=== PATIENT | male | born 1950 | race Caucasian/White ===

== ENCOUNTER 2016-08-28 20:54 | Observation (INO) ==
--- NOTE | 2016-08-28 21:25 | Emergency Department Note ---
Disposition Clinical Impression: Chest pain Qualifiers: Chest pain type: unspecified Qualified Code(s): R07.9 - Chest pain, unspecified Disposition: Admitted As Inpatient Time of Disposition: 21:35 Chest Pain HPI - General Chief Complaint: ED Chest Pain Stated Complaint: CP Time Seen by Provider: 08/28/16 21:09 Source: patient Limitations: no limitations Vital Signs Reviewed: Yes Nursing Notes Reviewed: Yes - History of Present Illness HPI Narrative: 65-year-old male with a known history of coronary disease and tobacco abuse presents to the emergency department via the [place] for evaluation of chest pain. Patient states that his pain has been going on for weeks and associated with exertion. Patient states when he is working outside his chest pain will develop usually develops in the left axilla. Patient states this feels similar to his previous [place]. Last heart catheterization was in the late . Patient states he had a stent placed at that time. Patient states he becomes diaphoretic and short of breath with this chest pain. Patient states the chest pain then will spread across his left anterior chest. Patient was given 3 nitroglycerin and 325 aspirin prior to arrival. Patient states that his chest pain resolved after medications. Pt complaint: chest pain Onset (ago): week(s) Duration: intermittent Onset: during exertion Pain Location: left chest Severity scale (1-10): 2 Quality: tightness, aching Pain Radiation: back Improves with: nitroglycerin Worsens with: exertion Associated symptoms: Reports: diaphoresis, dyspnea Treatments prior to arrival chest pain: aspirin, nitroglycerin - Related Data Home Medications Medication Instructions Recorded Confirmed Metoprolol [Lopressor] 25 mg PO BID 08/28/16 08/28/16 Naproxen [Naprosyn] 500 mg PO BID 08/28/16 08/28/16 Omeprazole [PriLOSEC] 40 mg PO DAILY 08/28/16 08/28/16 Ranitidine HCl [Acid Phlebotomy Services Technician] 150 mg PO DAILY 08/28/16 08/28/16 Allergies Allergy/AdvReac Type Severity Reaction Status Date / Time simvastatin AdvReac unknown Verified 08/28/16 21:40 All systems ED: reviewed and negative except as stated. Constitutional: Denies: fever, chills Cardiovascular: Reports: chest pain, dyspnea on exertion. Denies: palpitations Respiratory: Reports: dyspnea. Denies: cough Gastrointestinal: Denies: abdominal pain, nausea, vomiting Musculoskeletal: Reports: back pain Neurological: Reports: headache (After nitroglycerin) Chest Pain PMH - Past Medical History Medical history: Reports: hypertension Psychiatric history: Reports: no psych history - Social History Smoking Status: Current every day smoker Alcohol use: Reports: occasionally Drug use: Reports: none Physical Exam - General Limitations: no limitations General appearance: alert, in no apparent distress - Head Head exam: atraumatic, normocephalic, normal inspection - Chest Chest inspection: Present: normal inspection, symmetric chest wall rise - Respiratory Respiratory exam: Present: normal lung sounds bilaterally - Cardiovascular Cardiovascular exam: Present: regular rate, normal rhythm, normal heart sounds - Abdominal Exam Abdominal exam: Present: soft, Non-Tender. Absent: tenderness, distention, guarding, rebound, rigidity - Neurological Exam Neurological exam: Present: alert - Skin Skin exam: Present: warm, dry, intact, normal color Course - Reevaluation(s) Reevaluation #1: Discussed case with Dr. Palma. Patient accepted for further evaluation and treatment. Time: 21:42 Vital Signs Temperature 0 F L 08/28/16 20:58 Pulse Rate 96 08/28/16 20:58 Respiratory Rate 16 08/28/16 20:58 Blood Pressure 141/78 08/28/16 20:58 O2 Sat by Pulse Oximetry 95 08/28/16 20:58 Temperature 97.6 F 08/28/16 22:35 Pulse Rate 88 08/28/16 22:35 Respiratory Rate 16 08/28/16 22:35 Blood Pressure 144/87 08/28/16 22:35 O2 Sat by Pulse Oximetry 97 08/28/16 22:35 Oxygen Delivery Oxygen Delivery Room Air Heart Score - Score History: Moderately Suspicious EKG: Normal Age: Greater than 65 Risk Factors: Equal/Greater than 3 risk factor or history of atherosclerotic disease Troponin: Less than normal limit HEART Score Total: 5 Attestation Statement - Attestation Attestation: I, Nav Jiménez MD, personally performed a history and physical exam of the patient and discussed their management with the resident. I reviewed the resident's note and agree with the documented findings, medical decision making , and plan of care. 65-year-old male referred here from the [facility] urgent care to be admitted for chest pain. Patient states he has a history of an [place] in the distant past and has had a couple cardiac catheters in the distant past. He denies any stents. For some time he has been having chest pain that seems to be related to exertion. The pain starts in the left axilla and then radiates to the mid chest. The pain is relieved with rest and was also relieved with nitroglycerin and aspirin. At present he denies any chest pain. On examination patient is a well-developed well-nourished well-appearing elderly male in no acute distress. He is alert and oriented 3. There is no cyanosis or diaphoresis. It is nontender to palpation. Breath sounds are clear and equal bilaterally. Heart regular rate and rhythm. Abdomen soft with normal bowel sounds. No acute changes on EKG. The hospitalist, Dr. Palma, was consulted and accepted admission of the patient.
[2016-08-28] MEDS ORDERED: *HR* Morphine 2 MG/ML SYRINGE ONE (22:57)
[2016-08-28] MEDS: *HR* Morphine 2 MG/ML SYRINGE IVP PRN (23:00)
[2016-08-28] MEDS ORDERED: Heparin 25,000 UNIT/500 ML D5W 25,000 UNIT/500 ML MLS IVC SCH (23:45)
[2016-08-28] MEDS ORDERED: Nitroglycerin 0.4 MG TAB.SUBL SL PRN (23:46)
[2016-08-28] MEDS ORDERED: Pantoprazole 40 MG VIAL IVP ONE (23:46)
[2016-08-28] MEDS ORDERED: *HR* Heparin 5,000 UNIT/ML VIAL IVP ONE (23:46)
[2016-08-28] MEDS ORDERED: *HR* Heparin 5,000 UNIT/ML VIAL IVP PRN ×2 (23:46)
[2016-08-29] MEDS ORDERED: *HR* LORazepam 2 MG/ML VIAL IVP PRN ×2 (00:03→03:14)
--- NOTE | 2016-08-29 00:13 | Internal Med History&Physical ---
<OscarMercedes Aprylcindy Cuellar - Last Filed: 08/29/16 05:02> Date of Encounter: 08/28/16 Time of Encounter: 23:00 Assessment and Plan (1) Chest pain, rule out acute myocardial infarction Current visit: Yes Status: Acute Troponin, 0.00, will trend EKG with evidence of old septal/anterior infarct, no acute ST changes CXR [facility] atherosclerotic calcification of thoracic aorta -Degenerative changes in thoracic spine -No pulm edema, focal consolidation, pleural effusion, PTX Consider PE with this atypical chest pain pattern CTA vs. V/Q scan dependent upon renal function in am Doppler Venous B/L lower extremities, pending ECHO, pending Consult cardiology (2) GERD (gastroesophageal reflux disease) Current visit: Yes Status: Acute Patient with 15 year history of epigastric pain Given alcohol abuse, smoking status, and NSAID use he is at high risk for ulcer Will start Protonix 40 BID Will evaluate pancreas as source of pain Amylase and lipase, pending May consider GI consult should reflux/epigastric pain not improve Qualifiers: Esophagitis presence: esophagitis presence not specified Qualified Code(s) : K21.9 - Gastro-esophageal reflux disease without esophagitis (3) DONNY (acute kidney injury) Current visit: Yes Status: Acute Cr 1.43 on labs from [facility] Repeat CMP in am (4) Hyperlipemia Current visit: Yes Status: Acute Lipid panel pending Qualifiers: Hyperlipidemia type: unspecified Qualified Code(s): E78.5 - Hyperlipidemia , unspecified (5) Hypertension Current visit: Yes Status: Acute Patient with single BP reading of 139/101 in ED BP 183/106 in notes from [facility] on 08/28/16 Patient has been non-compliant with metoprolol Continue to monitor Qualifiers: Hypertension type: essential hypertension Qualified Code(s): I10 - Essential (primary) hypertension (6) Dysuria Current visit: Yes Status: Acute Associated with foul odor and urinary hesitancy Must consider prostate hyperplasia UA with culture Retroperitoneal US to evaluate for hydronephrosis (7) Anxiety Current visit: Yes Status: Acute Patient very anxious at examination Ativan prn for anxiety (8) Tobacco use disorder Current visit: Yes Status: Acute Nicoderm 21mg available if requested (9) Alcohol abuse Current visit: Yes Status: Acute CIWA protocol Thiamine 100mg daily (10) DVT prophylaxis Current visit: Yes Status: Acute Internal Medicine - H&P: HPI Chief complaint: chest pain Admitted From: Hospital to Hospital Transfer Plans for Post Hospital Care: Home History of present illness: Mr. Ramos is a 65 year old male who presents to the hospital as a transfer from the [facility]. Patient is accompanied by his 2 sons and their wives. Patient states that chest pain onset was March 2016. Pain is described as intermittently sharp and dull. Pain begins under the left arm, and radiates like a band around the chest and back. Patient takes Naproxen or Tylenol for this problem. Patient states that attacks of chest pain occur randomly and are not associated with activity. 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 Admits associated dyspnea, diaphoresis, and shaking. He states that he has had 2 prior caths, one at [facility] and another at [place]. He cannot recount the intervention performed or results. Patient states that he "failed" a stress test in 2005, but does not know what was done following this event. Patient was seen on 08/26/2016 at the [facility] and was transferred to the [place] emergency department. He was complaining of a heavy, tight chest pain that did not radiate into the left arm or jaw. Pain at that time was associated with diaphoresis. Patient received ASA and nitroglycerin, which relieved chest pain. Patient states that he received notice that he could not park his truck, which contained propane in the [facility] parking lot. He states that he had to leave the hospital to pick and shovel man his truck. He signed out AMA. Patient returned to the [facility] today 08/28/2016 with complaint of left sided chest pain. Patient was treated with morphine, ASA, and 3 SL nitroglycerin. He was subsequently transferred to [place] for chest pain and to rule out ACS. Patient does not regularly take currently take the medications prescribed to him. He stopped the metoprolol because he made him feel funny. He only takes Ranitidine intermittently. Past Med Surg Social Fam HX - Past Medical History Medical history: COPD, GERD, hyperlipidemia, hypertension, peripheral artery disease (intermittent claudication), other (Lumbar Radiculopathy, Cervical Radiculopathy) Psychiatric history: no psych history - Past Surgical History Surgical History: knee replacement, orthopedic, other (Right knee arthroscopy) - Social History Smoking Status: Current every day smoker (2ppd x 50 years) Packs per day: 2 Smokeless Tobacco Status: No Alcohol use: heavy (8-12 beers per day, more on other days), recent Drug use: none Current living situation: Home - Independent Activity Level: Independent ambulation - Family History Father Race: Hx Family Cardiac Disorders: Yes Hx Family Cancer: Yes (COLON CANCER) Mother Living Status: Still Living Hx Family Cardiac Disorders: Yes (STENTS, PACEMAKER) Brother Living Status: Still Living Hx Family Cancer: Yes (Throat cancer) Internal Medicine - H&P: Meds Metoprolol [Lopressor] 25 mg PO BID 08/28/16 [History] Naproxen [Naprosyn] 500 mg PO BID 08/28/16 [History] Omeprazole [PriLOSEC] 40 mg PO DAILY 08/28/16 [History] Ranitidine HCl [Acid Parking Enforcement Manager] 150 mg PO DAILY 08/28/16 [History] Allergies simvastatin Adverse Reaction (Verified 08/28/16 21:40) unknown per va list All Systems PM: A 10-system review of systems was performed and is negative for pertinent findings except as documented above in the HPI. - Constitutional Constitutional: excessive sweating, weight loss (states 15 pounds) - Cardiovascular Cardiovascular ROS IM: chest pain, diaphoresis, dyspnea, lightheadedness, orthopnea, no edema - Respiratory Respiratory: cough (yellow sputum), snoring, no hemoptysis - Gastrointestinal Gastrointestinal: abdominal pain (epigastric), constipation (x1 month, recently took ex-lax to relieve constipaiton resulting in black stools), dyspepsia, heartburn (x15 years), nausea, no hematochezia, no vomiting - Genitourinary Genitourinary ROS male: difficulty urinating, urinary frequency, urinary hesitancy, other (foul odor to urine), no hematuria - Musculoskeletal Musculoskeletal ROS IM: arthralgias (chest wall pain), back pain (chronic lumbar pain) - Neurological Neurological ROS: dizziness - Psychiatric Psychiatric: abnormal sleep pattern (insomnia), anxiety - Constitutional Vitals: Temp Pulse Resp BP Pulse Ox 97.6 F 88 16 144/87 97 08/28/16 22:35 08/28/16 22:35 08/28/16 22:35 08/28/16 22:35 08/28/16 22:35 General appearance: Present: mild distress (patient very anxious), A&O X 3, answers questions appropriately - Head Head exam: Present: atraumatic, normal inspection, normocephalic - Eye Eye exam: Present: conjunctival injection, EOMI - Neck Neck exam general surgery: Present: full ROM - Respiratory Respiratory exam: Present: chest wall tenderness (Exquisite tenderness to palpatinon of elevated ribs (Left ribs 4,5,6,10,11 Right ribs 4,5,9,10). Multiple rib dysfunctions noted anteriorly and posteriorly.), CTAB. Absent: rhonchi, wheezes - Cardiovascular Cardiovascular exam: Present: RRR, +S1, +S2 - GI/Abdominal GI/Abdominal exam: Present: guarding (LUQ to palpation), normal bowel sounds, soft, tenderness (epigastric, RUQ, LUQ) - Extremities Exam Extremities exam: Present: normal inspection. Absent: pedal edema - Back Exam Back exam: Present: CVA tenderness (L), muscle spasm (Multiple errector spinae spasms noted in thoracic and lumbar spine. ), paraspinal tenderness ( Tenderness to palpation of lumbar spine. Also tender to palpation of specific dysfunctions in thoracic and cervical spine.). Absent: CVA tenderness (R) - Neurological Exam Neurological exam: Absent: facial droop, speech deficit - Psychiatric Psychiatric exam: Present: agitated, anxious Additional comments: Distractable. Uncomfortable with multiple people in his room at same time. Got up to walk out of room numerous times. - Skin Skin exam: Present: diaphoretic (at time of chest pain spasm) Internal Med - H&P Results - Labs Labs: Labs obtained from [facility] 08/26/16 Troponin < 0.1 WBC 13.3 Hemoglobin 16.7 hematocrit 47.6 Platelets 319 PT 13.8 INR 1.02 PTT 37.3 Sodium 140 potassium 4.0 Chloride 106 CO2 22 BUN 29 creatinine 1.66 Glucose 107 Calcium 9.8 Magnesium 2.3 Alkaline phosphatase 87 AST 16 ALT 22 T bili 0.5 Lipase 125 - EKG Data -: EKG Interpreted by Myself EKG shows normal: sinus rhythm Rate: normal - EKG Data Prior EKG available for review: yes When compared to previous EKG: there is no significant change Interpretation IM: other (Historical Anterior Infarct) - Attending Attestation I examined this patient and my medical decision-making was reviewed with the MIDDLE SCHOOL TUTOR/PA/Advanced Practice Nurse/Resident Physician. I agree with the documented findings, disposition and treatment plan as described except to the extent set forth below. <Ben Crook - Last Filed: 08/29/16 05:46> Date of Encounter: 08/29/16 Internal Medicine - H&P: HPI History of present illness: Mr. Ramos is a 65 year old male All Systems PM: A 10-system review of systems was performed and is negative for pertinent findings except as documented above in the HPI. - Constitutional Vitals: Temp Pulse Resp BP Pulse Ox 97.6 F 72 16 100/56 97 08/29/16 03:33 08/29/16 03:33 08/29/16 03:33 08/29/16 03:33 08/29/16 03:33 General appearance: Present: cooperative, A&O X 3, pleasant, no acute distress - Head Head exam: Present: atraumatic, normal inspection - Eye Eye exam: Present: EOMI, PERRL. Absent: scleral icterus Pupils: Present: normal accommodation - ENT ENT exam: Present: mucous membranes dry, normal exam - Neck Neck exam general surgery: Present: full ROM, supple. Absent: nuchal rigidity - Expanded Neck Exam Neck exam: Absent: carotid bruit - Respiratory Respiratory exam: Present: chest wall tenderness, CTAB - Cardiovascular Cardiovascular exam: Present: RRR, +S1, +S2. Absent: diastolic murmur, systolic murmur - GI/Abdominal GI/Abdominal exam: Present: normal bowel sounds, soft, tenderness (epigastric area), no peritoneal signs. Absent: guarding, rebound - Extremities Exam Extremities exam: Present: normal inspection. Absent: calf tenderness, joint swelling - Skin Skin exam: Present: warm. Absent: rash Internal Med - H&P Results - Labs Labs: Cardiac Enzymes 08/29/16 Range/Units 00:54 Troponin I 0.00 (0-0.03) ng/mL - EKG Data -: EKG Interpreted by Myself EKG shows normal: sinus rhythm - EKG Data Prior EKG available for review: yes EKG comments: 08/29/16 05:41 Suspect old inferior AZ and possible old anteroseptal [place] - Attending Attestation I discussed the pt [place], PMH, ROS, lab data, and exam findings with Dr. Moore. I then saw and examined patient independently as well. Pt complaints and exam findings are concerning for angina, PE, and/or GI (ulcer, pancreas, GB) . Pt has many cardiac risk factors. We will hold off proceeding with stress test until we can rule out PE/DVT. Additionally, he needs EGD in the near future. Given his risk factors and cardiac history, I favor cardiac consult instead of stress testing. I suspect he'll need LHC soon. Other than my comments above and noted exam findings, I agree with Dr. Moore assessment and plan.
[2016-08-29] MEDS ORDERED: Water for inj. (sterile) 10 ML IV ONE (00:17)
[2016-08-29 01:17] LABS: INR 1.2; Prothrombin Time 12.9 Seconds (9.4-12.1)
[2016-08-29] MEDS: *HR* Morphine 2 MG/ML SYRINGE IVP PRN (01:19)
[2016-08-29 01:20] LABS: Activated Partial Thrombo Time 31.5 Seconds (26.0-36.0)
[2016-08-29] MEDS: Nicotine 21 MG PATCH.TD24 TD SCH ×2 (01:25→07:47)
[2016-08-29] MEDS ORDERED: Pantoprazole 40 MG VIAL IVP SCH (06:00)
[2016-08-29 06:55] LABS: Basophils # 0.1 K/mcL (0.0-0.2); Basophils % 0.8 %; Eosinophils # 0.4 K/mcL (0.0-0.6); Eosinophils % 4.6 %; Hematocrit 39.8 % (37.5-50.1); Hemoglobin 13.2 g/dL (12.9-16.9); Immature Granulocytes % 0.4 % (0-4); Lymphocytes # 2.4 K/mcL (0.6-4.6); Lymphocytes % 31.4 %; Mean Corpuscular HGB Conc 33.2 g/dL (31.6-35.5); Mean Corpuscular Hemoglobin 29.9 pg (28.0-33.3); Mean Platelet Volume 9.2 fL (9.4-12.4); Monocytes # 0.9 K/mcL (0.0-1.3); Monocytes % 11.8 %; Neutrophils # 3.9 K/mcL (1.6-8.9); Platelet Count 277 K/mcL (140-400); Red Blood Count 4.42 M/mcL (4.19-5.50); Red Cell Distribution Width 13.5 % (11.5-14.5)
[2016-08-29 07:00] LABS: INR 1.2; Prothrombin Time 12.9 Seconds (9.4-12.1)
[2016-08-29 07:10] LABS: Alanine Aminotransferase 14 Units/L (0-55); Albumin/Globulin Ratio 0.9 (1.1-2.2); Alkaline Phosphatase 60 Units/L (38-126); Amylase 52 Units/L (25-125); Aspartate Amino Transferase 15 Units/L (5-34); BUN/Creatinine Ratio 20 (6-26); Bilirubin,Total 0.2 mg/dL (0.2-1.2); Blood Urea Nitrogen 28 mg/dL (8-26); Calcium 9.2 mg/dL (8.6-10.8); Carbon Dioxide 23 mEq/L (19-29); Chloride 109 mEq/L (98-109); Chol/HDL Ratio 3.9 (0-4.9); Cholesterol 142 mg/dL (< 200); Globulin 3.4 g/dL (2.4-3.5); Glucose 91 mg/dL (70-99); HDL Cholesterol 36 mg/dL (40-59); LDL Cholesterol,Calculated 80 mg/dL (0-99); Lipase 95 Units/L (8-78); Osmolality,Calculated 299 (280-300); Potassium 4.3 mEq/L (3.5-4.5); Sodium 142 mEq/L (136-145); Total Protein 6.4 g/dL (6.0-8.3); Triglycerides 132 mg/dL (< 150); eGFR For African Americans > 60 (> 60); eGFR For Non-African Americans 51 (> 60)
[2016-08-29] MEDS ORDERED: Thiamine (B-1) 100 MG, Folic Acid 1 MG, MVI, adult with vitamin K 10 ML in 0.9 % Sodi... IV SCH (09:00)
--- NOTE | 2016-08-29 11:03 | Cardiology Consult Note ---
<Imer Dickinson R - Last Filed: 08/29/16 11:00> Date of Encounter: 08/29/16 Time of Encounter: 11:00 Assessment and Plan (1) Chest pain Current Visit: Yes Status: Acute Troponin negative x 2. No EKG changes to indicate ischemia. Risk factors include HTN, HLD, tobacco abuse. Chest pain is musculoskeletal in nature--nearly jumped off table when palpation his left chest. Atypical, appears to be noncardiac. States he has had chest pain intermittently for years, described as same as he is having now. He does report worsening dyspnea--at least minimal bilateral pleural effusions on CXR. Denies lower extremity edema. Check echo to evaluate structure and function. Reports had a cath in the 80s without stent placement. Negative VQ this AM for PE. Since he had a VQ scan, unable to complete a stress test for 48 hours. No high risk features. If echo does not show any significant abnormalities, it is reasonable to discharge pt home with outpt follow-up. Then can reassess if stress test is warranted. Qualifiers: Chest pain type: unspecified Qualified Code(s): R07.9 - Chest pain, unspecified (2) DONNY (acute kidney injury) Current Visit: Yes Status: Acute Cr 1.39. Management per primary team, mildly improved from IN labs. (3) Hypertension Current Visit: Yes Status: Acute Patient with BP reading of 139/101 in ED. BP 183/106 in notes from [facility] on 08/28/16. Patient has been non-compliant with metoprolol. Now controlled on current meds. Adjust as necessary. Qualifiers: Hypertension type: essential hypertension Qualified Code(s): I10 - Essential (primary) hypertension (4) Tobacco use disorder Current Visit: Yes Status: Acute Smoking cessation counseling given. Discussion w patient/family: The assessment and plan as outlined above was discussed with the patient and/or family members who expressed understanding and agreement. All questions were answered. Thank you for involving us in the care of your patient. Please call with any questions. I will discuss all the above with Dr. Landa and make changes as necessary. History of Present Illness Consult date: 08/29/16 Requesting physician: Ben Crook Consult reason: chest pain Chief complaint: chest pain dyspnea History of present illness: Mr. Ramos is a 65 year old male with PMH HTN, HLD, COPD, tobacco abuse, PAD, that presents to the hospital as a transfer from the [facility]. Patient states that chest pain onset has been years ago. Pain is described as intermittently sharp and dull. Pain begins under the left arm, and radiates like a band around the chest and back. Patient takes Naproxen or Tylenol for this problem. Patient states that attacks of chest pain occur randomly and are not associated with activity. Pain occurs most commonly in evening, at night, and returner. Admits associated dyspnea, diaphoresis, and shaking. He states that he has had 2 prior caths, one at [facility] and another at [facility]. He cannot recount the intervention performed or results. He states he has not had a LHC since the 80s. Troponins have been negative x 2. No EKG changes. Undergoing VQ scan at time of exam to rule out PE. Past Med Surg Social Fam HX - Past Medical History Medical history: COPD, GERD, hyperlipidemia, hypertension, peripheral artery disease (intermittent claudication), other (Lumbar Radiculopathy, Cervical Radiculopathy) Psychiatric history: no psych history - Past Surgical History Surgical History: knee replacement, orthopedic, other (Right knee arthroscopy) - Social History Smoking Status: Current every day smoker (2ppd x 50 years) Packs per day: 2 Smokeless Tobacco Status: No Alcohol use: heavy (8-12 beers per day, more on other days), recent Drug use: none - Family History Father Race: Hx Family Cardiac Disorders: Yes Hx Family Cancer: Yes (COLON CANCER) Mother Living Status: Still Living Hx Family Cardiac Disorders: Yes (STENTS, PACEMAKER) Brother Living Status: Still Living Hx Family Cancer: Yes (Throat cancer) Medications and Allergies Metoprolol [Lopressor] 25 mg PO BID 08/28/16 [History] Naproxen [Naprosyn] 500 mg PO BID 08/28/16 [History] Omeprazole [PriLOSEC] 40 mg PO DAILY 08/28/16 [History] Ranitidine HCl [Acid [employer]] 150 mg PO DAILY 08/28/16 [History] Allergies simvastatin Adverse Reaction (Verified 08/28/16 21:40) unknown per [facility] list All Systems Review: A 10-system review of systems was performed and is negative for pertinent findings except as documented above in the HPI. - Cardiovascular Cardiovascular: as per HPI, chest pain at rest, chest pain with exertion, dyspnea at rest, dyspnea on exertion, radiating jaw, neck or arm pain - Respiratory Respiratory: dyspnea Physical Examination Vital Signs Temp Pulse Resp BP Pulse Ox 08/29/16 06:46 97.5 F L 85 16 140/82 89 L 08/29/16 03:33 97.6 F 72 16 100/56 97 08/28/16 22:35 97.6 F 88 16 144/87 97 08/28/16 22:08 0 F L 16 139/101 08/28/16 20:58 0 F L 96 16 141/78 95 Intake and Output 08/28/16 08/29/16 08/29/16 23:59 07:59 15:59 Intake Total 84.1 / 84.1 Balance 84.1 / 84.1 Intake: IV Fluids 84.1 / 84.1 Heparin 25,000 UNIT/500 84.1 / 84.1 ML D5W 25,000 unit In 500 ml @ 11.1 UNIT/KG/HR 19. 938 mls/hr IVC .Q24H [facility] Rx#:[id number] Other: # Voids 1 Weight 89.811 kg 89.358 kg Patient Weight 08/29/16 23:59 Weight 89.358 kg General: Conversant, No Apparent Distress HEENT: Atraumatic, Normocephaly, Mucus Membranes Moist Neck: No JVD, Normal carotid pulses Cardiac: Reg Rate and Rhythm, Normal S1 and S2, No Murmur Lungs: Normal Breath Sounds, No Wheeze, Rales, Rhonchi Neuro: Alert and responsive, No focal deficits noted Abdomen: Soft, Non-Tender Skin: No rashes noted on visualized skin Musculoskeletal: Other (significant chest wall tenderness on palpation.) Extremities: No Clubbing, No Cyanosis, No Edema, Normal Pulses Results 08/29/16 06:39 08/29/16 06:39 Lab Results 08/29/16 08/29/16 08/29/16 00:54 00:54 06:39 WBC Hgb Hct Plt Count INR 1.2 1.2 APTT 31.5 Sodium Potassium Chloride Carbon Dioxide BUN Creatinine Glucose Calcium Total Bilirubin AST ALT Alkaline Phosphatase Troponin I 0.00 Amylase Lipase 08/29/16 08/29/1608/29/17 06:39 06:39 06:39 WBC 7.7 Hgb 13.2 Hct 39.8 Plt Count 277 INR APTT 50.0 H D Sodium 142 Potassium 4.3 Chloride 109 Carbon Dioxide 23 BUN 28 H Creatinine 1.39 H Glucose 91 Calcium 9.2 Total Bilirubin 0.2 AST 15 ALT 14 Alkaline Phosphatase 60 Troponin I Amylase 52 Lipase 95 H 08/29/16 06:39 WBC Hgb Hct Plt Count INR APTT Sodium Potassium Chloride Carbon Dioxide BUN Creatinine Glucose Calcium Total Bilirubin AST ALT Alkaline Phosphatase Troponin I 0.00 Amylase Lipase Short CBC 08/29/16 Range/Units 06:39 WBC 7.7 (4.3-11.1) K/mcL Hgb 13.2 (12.9-16.9) g/dL Hct 39.8 (37.5-50.1) % Plt Count 277 (140-400) K/mcL Neutrophils # 3.9 (1.6-8.9) K/mcL BMP 08/29/16 Range/Units 06:39 Sodium 142 (136-145) mEq/L Potassium 4.3 (3.5-4.5) mEq/L Chloride 109 (98-109) mEq/L Carbon Dioxide 23 (19-29) mEq/L BUN 28 H (8-26) mg/dL Creatinine 1.39 H (0.72-1.25) mg/dL Glucose 91 (70-99) mg/dL Calcium 9.2 (8.6-10.8) mg/dL Cardiac Enzymes 08/29/16 08/29/16 Range/Units 06:39 00:54 Troponin I 0.00 0.00 (0-0.03) ng/mL Liver Function 08/29/16 Range/Units 06:39 Total Bilirubin 0.2 (0.2-1.2) mg/dL AST 15 (5-34) Units/L ALT 14 (0-55) Units/L Alkaline Phosphatase 60 (38-126) Units/L Albumin 3.0 L (3.5-5.0) g/dL Impressions Pulmonary Perfusion Imaging 08/29/16 07:34 IMPRESSION: Low Probability for Pulmonary Embolus. No scintigraphic evidence to suggest acute or chronic PE. D/ / Lencho Garcia MD / Lencho Garcia MD Interpreting Provider: Lencho Garcia MD Chest X-Ray 08/29/16 09:00 IMPRESSION: 1. Pulmonary vascular congestion without cardiomegaly. 2. Bilateral perihilar opacities more prominent on the right, potentially edema, atelectasis, and/or pneumonia. 3. Left basilar atelectasis. 4. At least trace bilateral pleural effusions. D/ / Ray Salamanca MD / Ray Salamanca MD Interpreting Provider: Ray Salamanca MD Active Medications Heparin Sodium (Porcine) (Heparin) 4,000 unit IVP Q6HR PRN PRN Reason: SEE COMMENTS Stop: 02/27/17 23:47 Thiamine HCl 100 mg/ Folic Acid 1 mg/ Multivitamins 10 ml / Sodium Chloride 511.2 mls @ 85.2 mls/hr IV DAILY KENNETH Stop: 08/31/16 14:59 Last Admin: 08/29/16 08:28 Dose: 85.2 mls/hr Lorazepam (Ativan) 1 mg IVP Q1H PRN PRN Reason: Alcohol Withdrawal Stop: 02/28/17 03:15 Morphine Sulfate (Morphine Sulfate) 2 mg IVP Q2H PRN PRN Reason: Chest Pain Stop: 02/27/17 23:46 Last Admin: 08/29/16 01:19 Dose: 2 mg Nicotine (Nicoderm) 21 mg TD DAILY KENNETH PRN Reason: Protocol Stop: 02/28/17 00:16 Last Admin: 08/29/16 07:47 Dose: Not Given Nitroglycerin (Nitroglycerin) 0.4 mg SL Q5MIN PRN PRN Reason: Chest Pain Stop: 02/27/17 23:47 Pantoprazole Sodium (Protonix) 40 mg IVP Q12HR KENNETH Stop: 02/28/17 06:01 Last Admin: 08/29/16 06:12 Dose: 40 mg - Imaging and Cardiology Chest Xray: report reviewed Echo: pending - EKG Interpretation EKG results cardiology: personally reviewed (SR) Consult Discharge Plan - Plan [facility]errals: [facility]Primary Care Provider] - <Bobo Landa G - Last Filed: 08/29/16 11:17> Date of Encounter: 08/29/16 Assessment and Plan Discussion w patient/family: The assessment and plan as outlined above was discussed with the patient and/or family members who expressed understanding and agreement. All questions were answered. Thank you for involving us in the care of your patient. Please call with any questions. History of Present Illness History of present illness: Mr. Ramos is a 65 year old male All Systems Review: A 10-system review of systems was performed and is negative for pertinent findings except as documented above in the HPI. Results 08/29/16 06:39 08/29/16 06:39 Lab Results 08/29/16 08/29/16 08/29/16 00:54 00:54 06:39 WBC Hgb Hct Plt Count INR 1.2 1.2 APTT 31.5 Sodium Potassium Chloride Carbon Dioxide BUN Creatinine Glucose Calcium Total Bilirubin AST ALT Alkaline Phosphatase Troponin I 0.00 Amylase Lipase 08/29/16 08/29/16 08/29/16 06:39 06:39 06:39 WBC 7.7 Hgb 13.2 Hct 39.8 Plt Count 277 INR APTT 50.0 H D Sodium 142 Potassium 4.3 Chloride 109 Carbon Dioxide 23 BUN 28 H Creatinine 1.39 H Glucose 91 Calcium 9.2 Total Bilirubin 0.2 AST 15 ALT 14 Alkaline Phosphatase 60 Troponin I Amylase 52 Lipase 95 H 08/29/16 06:39 WBC Hgb Hct Plt Count INR APTT Sodium Potassium Chloride Carbon Dioxide BUN Creatinine Glucose Calcium Total Bilirubin AST ALT Alkaline Phosphatase Troponin I 0.00 Amylase Lipase - Attending Attestation For this encounter, I have reviewed the ASSISTANT ELEMENTARY TEACHER or PA documentation, treatment plan, and medical decision making; and I have had face to face time with this patient. Pt's CP is atypical reproducible. no associated sob, VSS JVD: 6 cm Chest: clear CVS:: RRR will check echo but no further work up for this atypical CP Thanks !
[2016-08-29 11:21] VITALS: BP 146/85
[2016-08-29 12:04] LABS: Bilirubin,Urine Negative (Negative); Blood,Urine Negative (Negative); Clarity,Urine Clear (Clear); Color,Urine Yellow (Yellow); Glucose,Urine (UA) Normal (Normal); Ketones,Urine Negative (Negative); Leukocyte Esterase,Urine Negative (Negative); Nitrite,Urine Negative (Negative); Protein,Urine Negative (Neg-Trace); Specific Gravity,Urine 1.015 (1.010-1.025); Urobilinogen,Urine Normal (Normal)
--- NOTE | 2016-08-29 12:09 | ECHO - Doppler Report ---
Echocardiogram Name: Sandip Ramos Date of Study: 08/29/2016 Date: 1950 Ht: 72.0 in Medical Record#: [id number] Age: 65 Wt: 197.0 lb Gender: Male BSA: 2.12 Order #: [id number] Location: [facility] Room #: 3B37 Reading Physician: Ryan Trimble DO, SHANNA, CHARMAINE LI Grinding Wheel Operator: Layla Busch RVT, BETSY Ordering Physician: Mercedes Moore DO Primary Physician: [facility] Indications: Chest pain Impressions: LVEF 60%. Normal LV chamber size, wall thickness and function. Mild left ventricular diastolic dysfunction. Atypical septal motion consistent with bundle branch block. Normal right ventricular structure and function. Unable to estimate RVSP due to lack of TR jet. No significant valvular dysfunction. Left Ventricular Wall Motion: Rest Echo Findings All wall segments showed normal motion. Findings: Study Quality * Technically adequate exam. ECG Findings * Sinus rhythm with BBB. Left Ventricle * LVEF 60%. * Normal LV chamber size, wall thickness and function. * Mild left ventricular diastolic dysfunction. * Atypical septal motion consistent with bundle branch block. Right Ventricle * Normal right ventricular structure and function. Left Atrium * Mildly dilated left atrium. Right Atrium * Mildly dilated right atrium. Interatrial Septum * No evidence of PFO by color Doppler. Aortic Valve * Mildly calcified aortic valve leaflets. * Trileaflet aortic valve. * Trace aortic regurgitation. * No aortic stenosis. Mitral Valve * Mild mitral annular calcification * No mitral regurgitation. * No mitral stenosis. Tricuspid Valve * Normal tricuspid valve structure and function. * No tricuspid regurgitation. * Unable to estimate RVSP due to lack of TR jet. Pulmonic Valve * Pulmonic valve is not well visualized. * No pulmonic regurgitation. Aorta * Normally sized aortic root. Pericardium * The pericardium appears normal. IVC * Normal IVC dimensions and inspiratory collapse. Pulmonary Artery * Normal visualized portions of the main pulmonary artery. History History of Smoking Years 49 Packs 1 Family History of CAD Myocardial Infarction Measurements: BP: 100/ 56 2D Normal Values IVSd: 1.10 cm 0.6 - 1.0 cm LVIDd: 4.60 cm 3.7 - 5.6 cm LVPWd: 1.10 cm 0.6 - 1.1 cm LVIDs: 3.10 cm 1.5 - 3.6 cm AO: 3.30 cm < 4.0 cm LA: 3.50 cm 2.0 - 4.0cm %FS: 32.60 cm >25 % LA volume: 39 Mitral Valve Peak E:.74 m/sec Peak A:.82 m/sec E/A Ratio:0.9 Aortic Valve AI pressure Half-time: 957.00 msec Updated by Ryan Trimble DO, SHANNA, CHARMAINE LI on 08/29/2016 12:04:34 PM electronically signed on 08/29/2016 12:05:45 PM with status of Final Wall Motion Martins: 1=Normal, 2=Hypokinesis, 3=Akinesis, 4=Dyskinesis, 5=Aneurysmal, 6=Hyperkinetic, X=Not Visualized (Blank)=Missing
--- NOTE | 2016-08-29 13:53 | Discharge Summary ---
Date of Encounter: 08/29/16 Time of Encounter: 13:51 - Discharge Diagnosis (1) Chest pain, rule out acute myocardial infarction Priority: Primary Status: Acute (2) DONNY (acute kidney injury) Priority: Secondary Status: Acute (3) Alcohol abuse Priority: Secondary Status: Chronic (4) Dysuria Priority: Secondary Status: Acute (5) GERD (gastroesophageal reflux disease) Priority: Secondary Status: Chronic Qualifiers: Esophagitis presence: esophagitis presence not specified Qualified Code(s) : K21.9 - Gastro-esophageal reflux disease without esophagitis (6) Hyperlipemia Priority: Secondary Status: Chronic Qualifiers: Hyperlipidemia type: unspecified Qualified Code(s): E78.5 - Hyperlipidemia , unspecified (7) Hypertension Priority: Secondary Status: Chronic Qualifiers: Hypertension type: essential hypertension Qualified Code(s): I10 - Essential (primary) hypertension (8) Tobacco use disorder Priority: Secondary Status: Chronic - Discharge Medications Prescriptions: Aspirin Enteric Coated [Aspirin EC] 81 mg PO DAILY #30 tablet. Omeprazole [PriLOSEC] 40 mg PO DAILY #30 capsule. Tramadol HCl [Ultram] 50 mg PO TID PRN #20 tab PRN Reason: Pain Home Medications: Metoprolol [Lopressor] 25 mg PO BID 08/28/16 [History] Ranitidine HCl [Acid District Court Reporter] 150 mg PO DAILY 08/28/16 [History] Aspirin Enteric Coated [Aspirin EC] 81 mg PO DAILY #30 tablet. 08/29/16 [Rx] Omeprazole [PriLOSEC] 40 mg PO DAILY #30 capsule. 08/29/16 [Rx] Tramadol HCl [Ultram] 50 mg PO TID PRN #20 tab 08/29/16 [Rx] Allergies/Adverse Reactions: Allergies simvastatin Adverse Reaction (Verified 08/28/16 21:40) unknown per [facility] list Procedures/tests Complete & Pending: Procedures Performed prior 72 hours Category Date Time Status NM geena perf SPECT multi [NM] Routine Exams 08/29/16 11:00 Ordered NM pul vent and perfuse [NM] Routine Exams 08/29/16 07:34 Completed US retroperitoneal comp [US] Routine Exams 08/29/16 04:51 Ordered ECG 12 lead ECG [ECG] AM 0600 Y 08/29/16 06:00 Ordered EV echocardiogram Routine Y 08/29/16 03:43 Completed EV venous imaging LE BI Routine Y 08/29/16 03:41 Completed SP pharm nuclear stress Stat Y 08/29/16 11:00 Ordered Date of admission: 08/28/16 21:45 [facility] care physician: [facility] Consults: 08/29/16 03:45 Consult to Cardiology [CONS] Routine Comment: Consulting Provider: Cardiology Rhoda Reason for Consult: chest pain Call Completed: No Discharging clinician: Usha Rodriguez Anticipated date of discharge: 08/29/16 - Patient Status Disposition: Home, Self-Care Condition: Good Functional capacity at discharge: independent ambulation Overall status at discharge: patient is progressing back to baseline - Discharge Instructions Instructions: Chest Pain (DC) Follow Up With: [facility] [Primary Care Provider] - (In 1-2 weeks) Ryan Trimble DO [Partnered Physician] - (In 1-2 weeks for cardiac stress test.) Dimas Harvey MD [Partnered Physician] - (In 1-2 weeks for Urinary hesitancy/ possible BPH) Additional Instructions: Please follow up with Pain management in 1 -2 weeks for pain - Diet and Activity Activity: increase activity as tolerated Diet: advance to your usual diet, low fat, low cholesterol, low salt diet Hospital course: Mr. Ramos is a 65 year old male with history of hypertension, hyperlipidemia , gastroesophageal reflux disease is here after presenting with chest pain. He was placed on telemetry and his troponins were trended. Troponins have been negative so far. Given his acute onset of chest pain, the was also considered. Patient underwent a VQ scan which showed low probability for PE. His lower extremity venous Dopplers were also negative for DVT. Patient is feeling better now. Cardiology was consulted and recommended outpatient stress test as his echocardiogram did not show any significant wall motion abnormalities. Patient has a normal ejection fraction with mild diastolic dysfunction. This chest pain could be musculoskeletal or could be GI related. Patient takes naproxen which can cause gastritis contributing to his pain. This medication will be stopped. Continue PPI. Vision and also complained of some dysuria and urinary hesitancy suggestive of prostate hyperplasia. Recommend outpatient follow-up with urology. His urine analysis here was negative for any signs of infection. At this time, the patient is stable to discharge home and will follow up with his primary care provider and cardiology after discharge. - Time Spent with Patient Total time spent providing and/or coordinating discharge services: Less than 30 minutes (20 min) - Constitutional Vitals: Temp Pulse Resp BP Pulse Ox 97.6 F 70 16 146/85 96 08/29/16 11:20 08/29/16 11:20 08/29/16 11:20 08/29/16 11:20 08/29/16 11:20 General appearance: Present: cooperative, A&O X 3, pleasant, no acute distress - Respiratory Respiratory exam: Present: CTAB. Absent: accessory muscle use, rales, rhonchi, wheezes - Cardiovascular Cardiovascular exam: Present: RRR, +S1, +S2. Absent: diastolic murmur, gallop, rubs, systolic murmur - GI/Abdominal GI/Abdominal exam: Present: normal bowel sounds, soft, no peritoneal signs. Absent: distended, tenderness - Extremities Exam Extremities exam: Present: warm, radial pulses palpable and symetrical. Absent : calf tenderness, cyanotic, pedal edema - Attending Attestation This document has been at least partially created by [email or web address] recognition technology by Dr. Rodriguez. Errors in grammar, wording or other phrases may exist. If errors are found after the documentation is signed, they will be addressed individually in the addendum section of this document when appropriate.
--- NOTE | 2016-08-30 12:17 | Venous Imaging Report ---
LE Venous Duplex Patient Name:Sandip Ramos Order Number:[id number] Procedure Date:08/29/2016 Date:1950Age:65 yrs Gender:Male Location:[facility] Room #: 3B37 Wardrobe Manager:Layla Busch, RVT, RDCS Referring MD:Mercedes Moore DO road machine operator:[facility] Reading MD:Kobe Grewal MD Primary Indications:CHEST PAIN Secondary Indications: Risk Factors Yes/No Previous Vascular Surgery Yes Impressions: Bilateral lower extremity: normal superficial and deep exam. Findings Venous Duplex Results: Right: Venous imaging of the lower extremity reveals full patency and normal vessel compressibility of the right distal iliac, right common femoral, right superficial femoral, right popliteal, right posterior tibial, right peroneal, right great saphenous and right lesser saphenous. Doppler signals in the evaluated veins were normal. Left: Venous imaging of the lower extremity reveals full patency and normal vessel compressibility of the left distal iliac, left common femoral, left superficial femoral, left popliteal, left posterior tibial, left peroneal, left great saphenous and left lesser saphenous. Doppler signals in the evaluated veins were normal. Prior Study: No prior study available for comparison. Lower Extremity Venous Duplex Side Vein Compress Spontaneous Flow Augment Diameter (cm) Depth (cm) Right Distal Iliac Normal Yes Phasic Yes Right Common Femoral Normal Yes Phasic Yes Right Superficial Femoral Normal Yes Phasic Yes Right Popliteal Normal Yes Phasic Yes Right Posterior Tibial Normal Yes Phasic Yes Right Peroneal Normal Yes Phasic Yes Right Great Saphenous Normal Yes Phasic Yes Right Lesser Saphenous Normal Yes Phasic Yes Left Distal Iliac Normal Yes Phasic Yes Left Common Femoral Normal Yes Phasic Yes Left Superficial Femoral Normal Yes Phasic Yes Left Popliteal Normal Yes Phasic Yes Left Posterior Tibial Normal Yes Phasic Yes Left Peroneal Normal Yes Phasic Yes Left Great Saphenous Normal Yes Phasic Yes Left Lesser Saphenous Normal Yes Phasic Yes Updated by Kobe Grewal MD on 08/30/2016 12:12:27 PM electronically signed on 08/30/2016 12:12:40 PM with status of Final
--- NOTE | 2016-08-30 20:20 | Electrocardiograph Report ---
[place] [id number] Test Date: 2016-08-28 Pat Name: Sandip Ramos Department: 103 Room: 3B Gender: M Alarm Signal Operator: : 1950 Requested By: Usha Rodriguez Order Number: [id number] Reading MD: Ryan Trimble DO Measurements Intervals [place] Rate: 92 P: 76 ID: [id number] QRS: 45 QRSD: 87 T: 37 QT: 328 QTc: 378 Interpretive Statements SINUS RHYTHM Electronically Signed On 08-30-2016 20:19:16 EST by Ryan Trimble DO
== END 2016-08-29 15:10 | disposition home or self-care (01) ==
LOC: EMEROO 20:54 → 3BNU 20:54
PROVIDERS: ADMIT Internal Medicine; ATTEND Internal Medicine